=== PATIENT | male | born 2000 | race African-American/Black ===

== ENCOUNTER 2021-04-14 14:35 | Emergency (ER) | payer OTHER, SELFPAY ==
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
[2021-04-14 14:37] VITALS: BP 148/81; PULSE 95; RESP 18; TEMP 37.3; O2SAT 100
[2021-04-14 16:13] VITALS: BP 120/95; PULSE 98; RESP 16; TEMP 36.8; O2SAT 99
--- NOTE | 2021-04-14 17:17 | PC.NURSE ---
Pt to radiology
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
[2021-04-14 18:06] VITALS: BP 116/72; PULSE 85; RESP 14; TEMP 36.4; O2SAT 95
== END 2021-04-14 18:08 | disposition home or self-care (01) ==
PROVIDERS: Emergency Provider Emergency Medicine
DX: S39.012A Strain of muscle, fascia and tendon of lower back, initial encounter (principal); S16.1XXA Strain of muscle, fascia and tendon at neck level, initial encounter; V89.2XXA Person injured in unspecified motor-vehicle accident, traffic, initial encounter
CPT/HCPCS: 72100; 72125; 99284